=== PATIENT | female | born 1955 | race Asian ===

== ENCOUNTER → 2016-10-25 | Outpatient (CLI) | payer OTHER ==
[~2016-10-25] MED LIST: ACLI400A2 IH; ALBU8.5H IH; ASPI81 PO; DILT240C46 PO; FLUT1BLS PO; LORA0.5T2 PO; LOSA50TA37 PO; LOVA20 PO; METF500T4 PO; MONT10TA21 PO
== END | disposition home or self-care (01) ==
LOC: RADPV 11:08
PROVIDERS: ATTEND Internal Medicine Critical Care Medicine
DX: J44.9 Chronic obstructive pulmonary disease, unspecified (principal)
CPT/HCPCS: 71020